=== PATIENT | male | born 1985 ===

== ENCOUNTER 2020-11-01 18:37 | Emergency (ER) | payer SELFPAY ==
[~2020-11-01] VITALS: Ht 172.7 cm; Wt 67.3 kg
[2020-11-01 18:52] VITALS: BP 112/76; Ht 172.7 cm; Wt 67.3 kg
== END 2020-11-01 20:45 | disposition left against medical advice (07) ==
LOC: D.ER 18:37
DX: M79.646 Pain in unspecified finger(s) (principal); Z53.21 Procedure and treatment not carried out due to patient leaving prior to being seen by health care provider